=== PATIENT | male | born 1955 | race Caucasian/White ===

== ENCOUNTER 2023-10-04 09:54 | Observation (INO) | payer OTHER, SELFPAY ==
[2023-10-04] VITALS (27 sets, daily range): BP systolic 120–174; BP diastolic 40–65; PULSE 59–74; RESP 12–29; TEMP 36.4; O2SAT 94–98
--- NOTE | ~2023-10-04 | CT_ITS ---
EXAMINATION:CT diagnostic chest w con DATE: 10/05/2023 11:57 INDICATION: Exertional dyspnea. TECHNIQUE: Computed tomography (CT) of the chest was performed with 75 mL Omnipaque 350 intravenous c ontrast. Automated exposure control and iterative reconstruction technique were employed. The dose-le ngth product (DLP) was 302.93 mGy-cm. COMPARISON: None. FINDINGS: There are mild groundglass opacities in the upper lobes and lower lobes. No pleural effusio n. There is left ventricular enlargement of the heart. No pericardial effusion. There are coronary ar moses calcifications. There is mild aortic atherosclerosis. There is a 15 mm cyst in left kidney. Ther e is mild thoracic spondylosis. IMPRESSION: 1. Mild groundglass opacities in the upper lobes and lower lobes, consistent with atypical pneumonia versus mild pulmonary edema. Reviewed, dictated and finalized at location A. HAND IMPRESSION: 1. Mild groundglass opacities in the upper lobes and lower lobes, consistent wi th atypical pneumonia versus mild pulmonary edema.
--- NOTE | ~2023-10-04 | XR_ITS ---
EXAMINATION: XR chest 2V DATE: 10/04/2023 10:34 INDICATION: Dyspnea TECHNIQUE: frontal and lateral views of the chest were obtained. COMPARISON: None FINDINGS: The lungs are clear with no focal airspace opacities, pulmonary edema, pleural effusion or pneumothor ax. The cardiomediastinal silhouette is normal. Visualized bones and soft tissues are unremarkable. IMPRESSION: 1. No acute cardiopulmonary disease. Reviewed, dictated and finalized at location A. ENT SAFETY TECH
--- NOTE | 2023-10-04 10:12 | ECG_ITS ---
Measurements Intervals [place] Rate: 64 P: 66 DC: 183 QRS: 52 QRSD: 117 T: 119 QT: 410 QTc: 425 Interpretive Statements SINUS RHYTHM POSSIBLE LEFT ATRIAL ENLARGEMENT [-0.1mV P WAVE IN V1/V2] INCOMPLETE RIGHT BUNDLE BRANCH BLOCK INFERIOR MYOCARDIAL INFARCTION , PROBABLY OLD WITH POSTERIOR EXTENSION [40+ ms Q WAVE AND/OR ST/T ABNORMALITY IN II/aVFPROMINE NO PREVIOUS ECG AVAILABLE FOR COMPARISON Electronically Signed On 10-04-2023 15:05:36 DETAIL MANAGER by Gagan Marie M.D.
[2023-10-04 10:25] LABS: Basophils Percent Auto 0.3 % (0.2-1.2); Eosinophils Absolute Auto 0.2 K/mm3 (0-0.3); Eosinophils Percent Auto 2.3 % (0-4.4); Hematocrit 44.1 % (42.0-52.0); Hemoglobin 14.5 g/dL (14.0-18.0); Immature Granulocyte Absolute 0.04 K/mm3 (0.00-0.031); Immature Granulocyte Percent A 0.6 % (0-0.5); Lymphocytes Absolute Auto 1.56 K/mm3 (0.9-3.2); Lymphocytes Percent Auto 23.8 % (18.3-44.2); Mean Corpuscular HGB Conc 32.9 g/dl (32-36); Mean Corpuscular Hemoglobin 30.9 pg (26-34); Mean Platelet Volume 11.4 fl (7.4-10.4); Monocytes Absolute Auto 0.7 K/mm3 (0.1-0.6); Monocytes Percent Auto 10.4 % (2.6-8.5); Neutrophils Absolute Auto 4.1 K/mm3 (1.3-6.7); Neutrophils Percent Auto 62.6 % (45.5-73.1); Platelet Count Result 179 k/mm3 (150-375); Red Blood Count 4.69 M/mm3 (4.6-6.20); Red Cell Distribution Width 12.4 % (11.5-14.5); White Blood Count 6.6 K/mm3 (4.5-10.0)
[2023-10-04 10:38] LABS: Alanine Aminotransferase 35 U/L (6-50); Alkaline Phosphatase 83 U/L (38-126); Anion Gap 7 mmol/L (8-16); Aspartate Amino Transferase 37 U/L (17-59); Bilirubin,Total 0.5 mg/dL (0.2-1.3); Blood Urea Nitrogen 16 mg/dL (9-20); Calcium 9.1 mg/dL (8.4-10.2); Carbon Dioxide 25 mmol/L (22-30); Chloride 108 mmol/L (98-107); Estimated CRCL calculation 107 ml/min; Estimated Glomerular Filt Rate > 60; Glucose 104 mg/dL (65-110); Potassium 3.9 mmol/L (3.4-5.0); Sodium 140 mmol/L (137-145)
--- NOTE | 2023-10-04 11:15 | ED.SOB ---
HPI - SOB/Dyspnea General Chief Complaint: Shortness of Breath/Dyspnea Stated Complaint: sob Time Seen by Provider: 10/04/23 10:38 Source: patient Mode of arrival: ambulatory Limitations: no limitations History of Present Illness HPI Narrative: This is a 67 year old male that presents to the ER for dyspnea. Ongoing over the last 5 months. Reports exertional dyspnea. Reports he sometimes coughs up pink frothy sputum. Reports some chest tightness with this. He has been seen by his PCP and was prescribed an albuterol inhaler. He does not believe he has ever had a stress test. Denies lower extremity edema. Related Data Home Medications Medication Instructions Recorded Confirmed Adult One Daily Multivitamin 10/04/23 alendronate-vitamin D3 10/04/23 testosterone 100 mg implant pellet mg subcut 10/04/23 10/04/23 Allergies Allergy/AdvReac Type Severity Reaction Status Date / Time No Known Allergies Allergy Verified 10/04/23 10:43 Review of Systems Review of Systems: CONSTITUTIONAL: Denies fever CARDIOVASCULAR: Reports chest pain. Denies edema. RESPIRATORY: Reports cough and dyspnea. All systems reviewed & are unremarkable except as noted in HPI and below PMFSH Past Medical History Medical History (Updated 10/04/23 @ 12:58 by Minda More PA-C) History of hyperlipidemia History of hypertension Social History Social History (Updated 10/04/23 @ 11:20 by Minda More PA-C) Smoking status: Former smoker Exam Narrative: GENERAL: Well-appearing, well-nourished, and in no acute distress. HEAD: Normocephalic, atraumatic. EYES: EOMI. NECK: Supple. No adenopathy or masses. No JVD CHEST: Clear to auscultation. No respiratory distress. No wheezes rales or rhonchi HEART: Regular rate and rhythm. No murmur heard. Normal peripheral pulses. EXTREMITIES: Normal range of motion. No edema. SKIN: Warm, dry, no rash. NEURO: No focal deficits. Alert and oriented x3. PSYCH: Normal mood and affect Course Course Emergency Course: Patient updated on his workup and recommendation for admission Consultations Consultation #1: Spoke with hospitalist about patient and workup who accepts admission Date: 10/04/23 Vital Signs Vital signs: Vital Signs Temperature 97.6 F 10/04/23 10:09 Pulse Rate 70 10/04/23 10:09 Respiratory Rate 16 10/04/23 10:09 Blood Pressure 165/59 H 10/04/23 10:09 Pulse Oximetry 97 10/04/23 10:09 Temperature 97.6 F 10/04/23 10:09 Pulse Rate 69 10/04/23 10:42 Respiratory Rate 20 10/04/23 10:42 Blood Pressure 156/61 H 10/04/23 10:42 Pulse Oximetry 97 10/04/23 10:42 Oxygen Delivery Room Air 10/04/23 10:41 MDM - SOB/Dyspnea MDM Narrative Medical decision making narrative: Patient presents to the ER for exertional dyspnea ongoing for several months. He is afebrile and nontoxic appearing. His vitals are stable. CBC and metabolic panel without concerning findings. EKG shows Q-waves. His baseline troponin is negative. Reports no known history of coronary artery disease. He has never had a stress test or cardiac catheterization. Chest x-ray without acute cardiopulmonary abnormality. His BNP is elevated at 1510. No known history of heart failure. Patient's heart score is a 6. Patient updated on his workup and recommendation for admission. Spoke with hospitalist about patient and workup who accepts admission Differential Diagnosis Differential diagnosis: Likely congestive heart failure, community acquired pneumonia, pulmonary embolism and other (CAD, angina) Lab Data Attestation: I reviewed the patient's lab results. 10/04/23 10:20 10/04/23 10:20 Labs: Lab Results 10/04/23 10/04/23 Range/Units 10:20 11:06 WBC 6.6 (4.5-10.0) K/mm3 RBC 4.69 (4.6-6.20) M/mm3 Hgb 14.5 (14.0-18.0) g/dL Hct 44.1 (42.0-52.0) % MCV 94.0 (80-100) fl MCH 30.9 (26-34) pg MCHC 32.9 (32-36) g/dl RDW 12.4 (
[2023-10-04 11:36] LABS: INR 0.9; Prothrombin Time 12.9 Seconds (11.1-14.7)
[2023-10-04 11:37] LABS: Partial Thromboplastin Time 30.1 SECONDS (22.3-36.8)
[2023-10-04 11:41] LABS: NT Pro B Type Natriuretic Pept 1510 pg/mL (19.9-100); Troponin I 0.015 ng/mL (0.000-0.034)
[2023-10-04 11:42] LABS: D Dimer 0.32 ug/mL (<0.48)
[2023-10-04 11:50] LABS: Influenza A QL RT-PCR Negative (Negative); Influenza B QL RT-PCR Negative (Negative); RSV RNA, RT-PCR Negative (Negative); SARS-CoV-2 RNA PCR Negative (Negative)
--- NOTE | 2023-10-04 17:42 | ECG_ITS ---
Measurements Intervals [place] Rate: 62 P: 62 IA: 192 QRS: 37 QRSD: 108 T: 74 QT: 434 QTc: 444 Interpretive Statements SINUS RHYTHM POSSIBLE LEFT ATRIAL ENLARGEMENT [-0.1mV P WAVE IN V1/V2] INCOMPLETE RIGHT BUNDLE BRANCH BLOCK INFEROLATERAL MYOCARDIAL INFARCTION , PROBABLY OLD COMPARED TO ECG 10/04/2023 10:17:21 NO SIGNIFICANT CHANGES Electronically Signed On 10-05-2023 16:29:22 DISABILITY EXAMINER by Gagan Marie M.D.
--- NOTE | 2023-10-04 17:46 | PM.IMHP ---
H&P: HPI History of Present Illness Date/Time: 10/04/23 17:46 Chief Complaint: SOB, Chest Pain Narrative: 67 y/o M presents here with CP, exertional SOB, and intermittent cough with pink phlegm with PMH of HLD, HTN (off medications after weight reduction in 2017, has not been placed back on them), and murmur. Patient presents here with exertional SOB that has been ongoing since spring/summer of this year (2022). Patient reported that he has been very active and had been playing pickleball. During a game late summer, he was unable to finish playing due to SOB post-exertion and developed a productive cough which produced pink tinged sputum. Took approximately 20-30 mins of rest to alleviate SOB. Was then seen by his PCP and placed on Albuterol to use prior to exertion. Patient reported mild relief with use. Was referred to Pulmonology, has been unable to get an appointment. Has had prior PFT testing that showed mild lung disease . Patient has history of tobacco use - 1.5 ppd for 13 years. 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 No previous chemical exposures. No history of incarcerations, homelessness, travel to [place] countries, weight loss, or night sweats. Has had some cardiac workup at [facility] with Jennifer Rodríguez MD, echo in May of 2023 showed murmur per patient. However, patient became concerned when he developed chest tightness and a heaviness in his chest. Chest tightness continued to wake patient through the night every 40 mins and was accompanied by dizziness. Noted some alleviation with deep breathing, but symptoms would return. ED workup showed an unremarkable CBC and BMP, BNP elevated at 1510, CXR normal, troponin negative x2, and EKG showed sinus rhythm, possible left atrial large mint, incomplete RBBB, inferior ID (probably old with posterior extension), Q-wave, and ST/T abnormality. Review of Systems Review of Systems: All systems reviewed & are unremarkable except as noted in HPI and below PMFSH Past Medical History Medical History (Updated 10/04/23 @ 20:14 by Eva Heard APRN) HLD (hyperlipidemia) HTN (hypertension) Surgical History Surgical History History of umbilical hernia repair Social History Social History Smoking status: Former smoker Alcohol intake: current Alcohol use details: Daily, 3-5 beers Meds Home Medications and Allergies Home Medications Medication Instructions Recorded Confirmed Type Adult One Daily Multivitamin 10/04/23 History alendronate-vitamin D3 10/04/23 History testosterone 100 mg implant pellet mg subcut 10/04/23 10/04/23 History Allergies Allergy/AdvReac Type Severity Reaction Status Date / Time No Known Allergies Allergy Verified 10/04/23 10:43 Vital Signs Vital Signs - 24 hr 10/04/23 10:09 10/04/23 10:41 10/04/23 10:42 Temperature 97.6 F Pulse Rate 70 69 Respiratory Rate 16 20 Blood Pressure 165/59 H 156/61 H Pulse Oximetry 97 97 Oxygen Delivery Room Air Exam Const: General: comfortable and no acute distress HENMT: Face/Nose/Sinus: Normal nares present Mouth: Yes moist mucous membranes Eyes: General: appearance normal, both eyes and all related structures Sclera: sclerae normal Pupils: Equal, round and reactive pupils present EOM: EOMs intact bilaterally Resp: Effort & Inspection: normal respiratory effort Auscultation: clear to auscultation bilaterally Cardio: Rate: regular rate Rhythm: regular rhythm Other: +murmur GI: GI Palp: Yes Soft to palpation Auscultation: normal bowel sounds Skin: General skin exam: normal color and no rashes or lesions noted Wounds: no wounds Neuro: Speech: normal speech Motor exam (neuro): 5/5 motor strength present throughout Sensory Exam: normal sensation Other: A/Ox4 Extrem: General: normal to inspection Psych: Mental Stat
[2023-10-04 18:23] LABS: Troponin I 0.021 ng/mL (0.000-0.034)
--- NOTE | 2023-10-04 19:16 | PC.NURSE ---
This RN assumed care of patient. This RN took patient report from Belinda Gonzalez.
[2023-10-04] MEDS: ACETAMINOPHEN 500 MG TABLET PO (20:51)
[2023-10-05] VITALS (16 sets, daily range): BP systolic 128–155; BP diastolic 51–70; PULSE 54–83; RESP 16–20; TEMP 36.2–36.6; O2SAT 96–100; BMI 31.1
--- NOTE | 2023-10-05 | ECHO_ITS ---
Patient Info Name: Quinton Nieves Age: 67 years : 1955 Gender: Male Ht: 70 in Wt: 217 lbs BSA: 2.23 m2 HR: 54 bpm BP: 135 / 70 mmHg Heart Rhythm: Sinus Rhythm, Bradycardia Technical Quality: Fair Exam Date: 10/05/2023 9:08 AM Exam Location: Echo Lab Patient Status: Outpatient Admit Date: 10/04/2023 Staff Ordering Physician: Eva Heard APRN Fitness Technician: Audra De La Paz RDCS Attending Provider: Christina Velasco DO Referring Physician: Orquidea DANIELLE; Exam Type: CA echo dop color flow w con Study Info Indications - SOB W/EXERTION Complete two-dimensional, color flow and Doppler transthoracic echocardiogram is performed with contrast to opacify the left ventricle and to improve the deliniation of the left ventricle endocardial borders. Contrast/Agitated Saline Contrast/Ag. Saline: Definity Amount: 2.00 ml Administered By: uAdra De La Paz RDCS Existing IV Access: Yes IV Access Condition: patent with no signs of infiltration Summary 1. Left ventricular chamber dimension is normal. 2. There is moderately increased left ventricular wall thickness. 3. Left ventricular systolic function is normal, estimated at 55-60%. 4. The apex appears to be hypokinetic. 5. The left ventricular diastolic function is grade I diastolic dysfunction. 6. Right ventricular systolic function is normal. 7. There is moderate aortic valve calcification. 8. There is moderate aortic valve stenosis with a peak velocity of 310.53 cm/s, mean gradient of 21 mmHg, and aortic valve area of 1.10 cm2. Left Ventricle The apex appears to be hypokinetic. Left ventricular chamber dimension is normal. Left ventricular systolic function is normal, estimated at 55-60%. There is moderately increased left ventricular wall thickness. The left ventricular diastolic function is grade I diastolic dysfunction. Right Ventricle Right ventricular chamber dimension is normal. Right ventricular systolic function is normal. Left Atria Left atrial chamber dimension is normal. Right Atria Right atrial chamber dimension is normal. Atrial Septum Intact interatrial septum visualized by color flow imaging. Aortic Valve The aortic valve is not well visualized. There is moderate aortic valve stenosis with a peak velocity of 310.53 cm/s, mean gradient of 21 mmHg, and aortic valve area of 1.10 cm2. There is no aortic valve regurgitation. There is moderate aortic valve calcification. Pulmonic Valve The pulmonic valve is not well visualized. There is trace pulmonic regurgitation. Mitral Valve The mitral valve has thickened leaflets. There is trace mitral valve regurgitation. Tricuspid Valve There is trace tricuspid valve regurgitation. Pericardium/Pleural There is no pericardial effusion. Inferior Vena Cava Normal inferior vena cava with <50% collapse upon inspiration consistent with normal right atrial pressure, 8 mmHg. Aorta The aortic root size at the sinus of Valsalva is normal. Left Ventricular Outflow Tract Name Value Normal LVOT 2D LVOT Diameter 2.01 cm LVOT Doppler LVOT Peak Gradient 5 mmHg LVOT Mean Gradient 3 mmHg
--- NOTE | 2023-10-05 01:03 | PC.NURSE ---
THIS RN ATTEMPTED TO CALL REPORT TO IMU NURSE TO GET PT UPSTAIRS. IMU NURSE INFORMED THIS RN, THEY WERE UNABLE TO TAKE PT REPORT AT THIS TIME. ED ATTENDANCE SECRETARY MADE AWARE.
--- NOTE | 2023-10-05 01:26 | ADMGEN ---
This patient, Quinton Nieves, was admitted to IMU Room 211-01 @0120 Patient/family oriented to hospital policies and general routines including ID bracelet, bed and alarms, visiting hours, pain management, procedures, bathroom and other care routines, personal items, smoking policy, room service/diet, and visiting hours. Information on how to activate the Rapid Response Team has been discussed. Patient/Family are encouraged to report perceived risks to care and to ask questions if they do not understand what they are told or what they should do.
[2023-10-05] MEDS: ACETAMINOPHEN 500 MG TABLET PO ×3 (02:36→20:40)
[2023-10-05 05:28] LABS: Hematocrit 42.7 % (42.0-52.0); Hemoglobin 14.2 g/dL (14.0-18.0); Mean Corpuscular HGB Conc 33.3 g/dl (32-36); Mean Corpuscular Hemoglobin 31.4 pg (26-34); Mean Corpuscular Volume 94.5 fl (80-100); Mean Platelet Volume 11.7 fl (7.4-10.4); Platelet Count Result 167 k/mm3 (150-375); Red Blood Count 4.52 M/mm3 (4.6-6.20); Red Cell Distribution Width 12.2 % (11.5-14.5); White Blood Count 6.1 K/mm3 (4.5-10.0)
[2023-10-05 05:38] LABS: Anion Gap 7 mmol/L (8-16); Blood Urea Nitrogen 17 mg/dL (9-20); Calcium 8.7 mg/dL (8.4-10.2); Carbon Dioxide 25 mmol/L (22-30); Chloride 107 mmol/L (98-107); Estimated CRCL calculation 94 ml/min; Estimated Glomerular Filt Rate > 60; Glucose 93 mg/dL (65-110); Potassium 4.1 mmol/L (3.4-5.0); Sodium 139 mmol/L (137-145)
[2023-10-05] MEDS: MULTIVITAMINS THERAPEUTIC TAB (*BKC) 1 TABLET PO (08:59)
[2023-10-05] MEDS: ENOXAPARIN 40 MG/0.4 ML SYRINGE SUB-Q (09:00)
[2023-10-05] MEDS: ATORVASTATIN 20 MG TABLET PO (09:00)
[2023-10-05] MEDS: PERFLUTREN LIPID MICROSPHERES 1.5 ML VIAL DILUTED TO 10 ML TOTAL VOLUME IV PUSH (09:25)
--- NOTE | 2023-10-05 09:28 | PM.IMPN ---
Progress Note: A&P Assessment and Plan (1) Exertional dyspnea: Code(s): R06.09 - Other forms of dyspnea Status: Acute (2) Chest pain: Code(s): R07.9 - Chest pain, unspecified Status: Acute (3) HTN (hypertension): Code(s): I10 - Essential (primary) hypertension Status: Acute Plan 67-year-old female presented with chest pain exertion shortness of breath and intermittent cough with pink phlegm. Ongoing since spring. History of tobacco abuse 1.5 pack per day for 13 years. Echo in May of 2023 ED workup revealed unremarkable CBC and BMP BNP was elevated at 1510. Chest x-ray was normal. Troponin negative. EKG sinus rhythm possible left atrial enlargement, incomplete right bundle-branch block inferior WI Q-wave and ST T-wave abnormality. D-dimer 0.32. Cardiology consulted for further cardiac workup. History of hypertension not currently on medications since weight loss echo in the past from February 27 reviewed LVEF normal however had apical hypokinesis. Also has moderate however difficult to determine. CT chest ordered by Cardiology revealed mild ground-glass opacities in upper lobes and lower lobes consistent with atypical pneumonia versus mild pulmonary edema. Suspect worsening aortic stenosis etiology and congestive heart failure with all these findings. Echocardiogram has been reordered and will reviewed. May need stress test for further evaluation. Await cardiac recommendations. DVT prophylaxis Lovenox Subjective Date/time seen: 10/05/23 09:28 Interval history: 67-year-old female presented with chest pain exertion shortness of breath and intermittent cough with pink phlegm. Ongoing since spring. History of tobacco abuse 1.5 pack per day for 13 years. Echo in May of 2023 ED workup revealed unremarkable CBC and BMP BNP was elevated at 1510. Chest x-ray was normal. Troponin negative. EKG sinus rhythm possible left atrial enlargement, incomplete right bundle-branch block inferior WI Q-wave and ST T-wave abnormality. D-dimer 0.32. Cardiology consulted for further cardiac workup. History of hypertension not currently on medications since weight loss echo in the past from February 27 reviewed LVEF normal however had apical hypokinesis. Also has moderate however difficult to determine. CT chest ordered by Cardiology revealed mild ground-glass opacities in upper lobes and lower lobes consistent with atypical pneumonia versus mild pulmonary edema. Suspect worsening aortic stenosis etiology and congestive heart failure with all these findings. Echocardiogram has been reordered and will reviewed. May need stress test for further evaluation. Await cardiac recommendations. Review of Systems Review of Systems: All systems reviewed & are unremarkable except as noted in HPI and below Exam Narrative: GENERAL: Well-appearing, well-nourished, and in no acute distress. HEAD: Normocephalic, atraumatic. EYES: EOMI. NECK: Supple. No adenopathy or masses. No JVD CHEST: Clear to auscultation. No respiratory distress. No wheezes rales or rhonchi HEART: Regular rate and rhythm. No murmur heard. Normal peripheral pulses. EXTREMITIES: Normal range of motion. No edema. SKIN: Warm, dry, no rash. NEURO: No focal deficits. Alert and oriented x3. PSYCH: Normal mood and affect Objective Data Vital Signs Vital Signs: Vital Signs - 24 hr 10/04/23 10:09 10/04/23 10:41 10/04/23 10:42 Temperature 97.6 F Pulse Rate 70 69 Respiratory Rate 16 20 Blood Pressure 165/59 H 156/61 H Pulse Oximetry 97 97 Oxygen Delivery Room Air 10/04/23 10:47 10/04/23 11:01 10/04/23 11:17 Temperature Pulse Rate 62 64 64 Respiratory Rate 23 H 18 24 H Blood Pressure 147/60 H 174/65 H 156/54 H Pulse Oximetry 97 97 97 Oxygen Delivery 10/04/23 11:31 10/04/23 15:23 10/04/23 15:32 Temperature Pulse Rate 64 61 60 Respiratory Rate 25 H 20 17 Blood Pressure 151/60 H 141/65 H 123
--- NOTE | 2023-10-05 09:50 | PM.CNCAR ---
Assessment and Plan Assessment and plan (1) Exertional dyspnea: Code(s): R06.09 - Other forms of dyspnea Status: Acute Assessment and Plan: Has been experiencing exertional dyspnea for several years, worse over the past 6 months. He denies any orthopnea, peripheral edema, rapid weight gain. Chest x-ray does not show any pulmonary congestion. He did have a mildly elevated NT proBNP of 1510. Had an echocardiogram performed in February of this year that showed normal LV systolic function with an EF of 65%, moderate aortic stenosis, indeterminate diastolic function. Doubt his shortness of breath is primarily a cardiac problem Echo has been ordered and is pending Will check a chest CT Further workup per hospitalist (2) Chest pain: Code(s): R07.9 - Chest pain, unspecified Status: Acute Assessment and Plan: Atypical chest pain. Patient describes this as a pressure-like sensation in his upper abdomen. Feels like pressure or compression on diaphragm. Troponin levels are negative. EKG shows sinus rhythm with incomplete RBBB, cannot rule out inferior infarct of indeterminate age. Can consider outpatient stress testing (3) HTN (hypertension): Code(s): I10 - Essential (primary) hypertension Status: Acute Assessment and Plan: Blood pressure is above goal. We will await results of echocardiogram before selecting an antihypertensive agent History of Present Illness History of Present Illness Consult date/time: 10/05/23 09:50 Requesting physician: Eva Heard APRN Consult reason: congestive heart failure Reason For Visit: Exertional Dyspnea Narrative: Quinton Nieves is a 67-year-old male with hyperlipidemia and moderate aortic stenosis. He was hospitalized now with a chief complaint of exertional dyspnea. He reports exertional dyspnea that has been ongoing for several years but has worsened in the past 6 months. He became more concerned a couple of nights ago when he developed tightness that he describes as being in the area of his diaphragm that was associated with shortness of breath. He states that when he goes on ?power walks? and plays pickle ball he has to rest for about 20-30 minutes in order to catch his breath. He did go to his primary care doctor because of this complaint and was given an albuterol inhaler which he takes before activity and he thinks this has helped slightly. He also had pulmonary function studies done at and [facility] facility that he reports showed ?mild lung disease.? He has been referred to pulmonology but has not been seen yet. He also had a cardiac evaluation by Dr. Rodríguez at [facility] in February. He did have an echocardiogram that showed normal systolic function with moderate aortic stenosis. He denies any chest pain, palpitations, edema, rapid weight gain, orthopnea, or paroxysmal nocturnal dyspnea. Currently, he is lying comfortably in bed and does not have any complaints. His daughter is at the bedside. Review of Systems Review of Systems: All systems reviewed & are unremarkable except as noted in HPI and below PMFSH Past Medical History Medical History HLD (hyperlipidemia) HTN (hypertension) Surgical History Surgical History History of umbilical hernia repair Family History Family History Father Chronic obstructive pulmonary disease Congestive heart failure Social History Social History Smoking status: Former smoker Alcohol intake: former Alcohol use details: Daily, 3-5 beers Substance use: never Do You Feel Safe in your Home?: Yes Lack of Transportation: No Lack of Food: Never True Current Housing: I Have Housing Concerned About Future Housing: No Difficulty Paying Gas/Electric Bills:
[2023-10-05] MEDS: CYCLOBENZAPRINE HCL 5 MG TABLET PO (16:10)
[2023-10-05] MEDS: FUROSEMIDE INJ 40 MG/4 ML VIAL IV PUSH (18:19)
[2023-10-06] VITALS: PULSE 57
[2023-10-06 00:15] VITALS: BP 135/58; PULSE 54; RESP 16; TEMP 36.5; O2SAT 96
[2023-10-06 04:00] VITALS: PULSE 66
[2023-10-06] MEDS: ACETAMINOPHEN 500 MG TABLET PO (05:58)
[2023-10-06 06:41] LABS: Basophils Percent Auto 0.2 % (0.2-1.2); Eosinophils Absolute Auto 0.2 K/mm3 (0-0.3); Eosinophils Percent Auto 2.5 % (0-4.4); Hematocrit 45.9 % (42.0-52.0); Immature Granulocyte Absolute 0.01 K/mm3 (0.00-0.031); Immature Granulocyte Percent A 0.2 % (0-0.5); Lymphocytes Absolute Auto 1.16 K/mm3 (0.9-3.2); Mean Corpuscular HGB Conc 32.7 g/dl (32-36); Mean Corpuscular Hemoglobin 30.9 pg (26-34); Mean Corpuscular Volume 94.4 fl (80-100); Monocytes Absolute Auto 0.7 K/mm3 (0.1-0.6); Monocytes Percent Auto 11.6 % (2.6-8.5); Neutrophils Absolute Auto 4.1 K/mm3 (1.3-6.7); Neutrophils Percent Auto 66.5 % (45.5-73.1); Platelet Count Result 186 k/mm3 (150-375); Red Blood Count 4.86 M/mm3 (4.6-6.20); Red Cell Distribution Width 12.1 % (11.5-14.5); White Blood Count 6.1 K/mm3 (4.5-10.0)
[2023-10-06 06:51] LABS: Alanine Aminotransferase 37 U/L (6-50); Albumin Level 4.3 g/dL (3.5-5.1); Alkaline Phosphatase 78 U/L (38-126); Anion Gap 8 mmol/L (8-16); Aspartate Amino Transferase 31 U/L (17-59); Bilirubin,Total 0.9 mg/dL (0.2-1.3); Blood Urea Nitrogen 18 mg/dL (9-20); Calcium 9.1 mg/dL (8.4-10.2); Carbon Dioxide 27 mmol/L (22-30); Chloride 103 mmol/L (98-107); Estimated CRCL calculation 94 ml/min; Estimated Glomerular Filt Rate > 60; Glucose 96 mg/dL (65-110); Magnesium 2.3 mg/dL (1.6-2.3); Potassium 3.8 mmol/L (3.4-5.0); Sodium 138 mmol/L (137-145)
[2023-10-06 08:00] VITALS: BP 128/69; PULSE 58; PULSE 61; RESP 24; TEMP 36.2; O2SAT 95
[2023-10-06] MEDS: ATORVASTATIN 20 MG TABLET PO (09:21)
[2023-10-06] MEDS: ENOXAPARIN 40 MG/0.4 ML SYRINGE SUB-Q (09:21)
[2023-10-06] MEDS: MULTIVITAMINS THERAPEUTIC TAB (*BKC) 1 TABLET PO (09:21)
--- NOTE | 2023-10-06 10:30 | PM.PNCARD ---
Progress Note: A&P Assessment and Plan (1) Exertional dyspnea: Code(s): R06.09 - Other forms of dyspnea Status: Acute Assessment and Plan: Has been experiencing exertional dyspnea for several years, worse over the past 6 months.? ? He denies any orthopnea, peripheral edema, rapid weight gain. ? Chest x-ray does not show any pulmonary congestion.? He did have a mildly elevated NT proBNP of 1510. ? Had an echocardiogram performed in February of this year that showed normal LV systolic function with an EF of 65%, moderate aortic stenosis, indeterminate diastolic function. Echocardiogram 10/05 this admission shows moderately increased LV wall thickness, LVEF 550-60% with hypokinesis of the apex (was noticed on prior echocardiogram as well from February), grade 1 diastolic dysfunction, moderate . CT Chest was obtained yesterday which showed mild groundglass opacities in the upper lobes and lower lobes, consistent with atypical pneumonia or mild pulmonary edema. He was given dose of IV Lasix 40mg x 1 last night, and had good urine output with 2.95L of urine overnight. Patient states he is feeling well this morning and feels better after diuresing. Blood pressures are better this morning after diuresis as well. Recommend oral daily Lasix. Recommend outpatient sleep study as well. (2) Chest pain: Code(s): R07.9 - Chest pain, unspecified Status: Acute Assessment and Plan: Atypical chest pain.? Patient describes this as a pressure-like sensation in his upper abdomen.? Feels like pressure or compression on diaphragm.? Troponin levels are negative. EKG shows sinus rhythm with incomplete RBBB, cannot rule out inferior infarct of indeterminate age. Reasonable to obtain outpatient stress testing or coronary CTA. Patient to follow up with his primary Short Piece Handler regarding this. (3) HTN (hypertension): Code(s): I10 - Essential (primary) hypertension Status: Acute Assessment and Plan: Improved with Lasix. Plan Stable for discharge from my standpoint. Recommendations and plan discussed with Hospitalist. Patient to follow up with his primary excellence specialist, Dr. Santiago. Subjective Date/time seen: 10/06/23 10:30 Interval history: Reason for visit: Exertional dyspnea HPI: Quinton Nieves is a 67-year-old male with hyperlipidemia and moderate aortic stenosis.? He was hospitalized now with a chief complaint of exertional dyspnea.? He reports exertional dyspnea that has been ongoing for several years but has worsened in the past 6 months.? He became more concerned a couple of nights ago when he developed tightness that he describes as being in the area of his diaphragm that was associated with shortness of breath.? He states that when he goes on ?power walks? and plays pickle ball he has to rest for about 20-30 minutes in order to catch his breath.? He did go to his primary care doctor because of this complaint and was given an albuterol inhaler which he takes before activity and he thinks this has helped slightly.? He also had pulmonary function studies done at and [facility] facility that he reports showed ?mild lung disease.?? He has been referred to pulmonology but has not been seen yet.? He also had a cardiac evaluation by Dr. Rodríguez at [facility] in February.? He did have an echocardiogram that showed normal systolic function with moderate aortic stenosis.? He denies any chest pain, palpitations, edema, rapid weight gain, orthopnea, or paroxysmal nocturnal dyspnea.? Currently, he is lying comfortably in bed and does not have any complaints.? His daughter is at the bedside. Date of service 10/06: CT Chest was obtained yesterday which showed mild groundglass opacities in the upper lobes and lower lobes, consistent with atypical pneumonia or mild pulmonary edema. He was given dose of IV Lasix 40mg x 1 last night, and had good urine output with 2.95L of urine overnight. Patient states he is feeling well this morning and feels better afte
--- NOTE | 2023-10-06 12:01 | PM.DS ---
DS: Admitting Diagnosis Discharge Date 10/06/2023 Admitting Diagnosis Shortness of breath DS: Discharge Diagnosis Discharge Diagnosis (1) Exertional dyspnea: Code(s): R06.09 - Other forms of dyspnea Status: Acute (2) Chest pain: Code(s): R07.9 - Chest pain, unspecified Status: Acute (3) HTN (hypertension): Code(s): I10 - Essential (primary) hypertension Status: Acute DS: Summary Hospital Course Hospital Course: 67-year-old male presented with chest pain exertion shortness of breath and intermittent cough with pink phlegm.? Ongoing since spring and gradually worsening. No leg swelling.? History of tobacco abuse 1.5 pack per day for 13 years.? Echo in May of 2023 reviewed. ED workup revealed unremarkable CBC and BMP BNP was elevated at 1510.? Chest x-ray was normal.? Troponin negative.? EKG sinus rhythm possible left atrial enlargement, incomplete right bundle-branch block inferior MT Q-wave and ST T-wave abnormality.? D-dimer 0.32.? Which is negative. cardiology consulted for further cardiac workup.? History of hypertension not currently on medications since weight loss however has been creeping up. Echo in the past from February 27 reviewed LVEF normal however had apical hypokinesis.? Also has moderate however difficult to determine. Plan was to repeat in a year to further evaluate. CT chest revealed mild ground-glass opacities in upper lobes and lower lobes consistent with atypical pneumonia versus mild pulmonary edema.? Suspect worsening aortic stenosis etiology and congestive heart failure with all these findings. Repeat echo 10/05/2023 showed moderately increased LV wall thickness, LVEF 50-60% with hypokinesis of the apex grade 1 diastolic dysfunction and moderate . Given a dose of Lasix with findings of pulmonary congestion in CT chest with marked improvement in his symptoms. He also had apnea link test which showed AHI of 94.5 strongly suggestive of underlying sleep apnea. He will need sleep study as an outpatient basis. For apical hypokinesis he might need further evaluation for underlying coronary artery disease with outpatient stress test or coronary CTA. Your follow-up with his primary green end department supervisor regarding this. He will be sent home on oral Lasix along with potassium supplement. Time Spent with Patient Time attestation: Total time spent providing and/or coordinating discharge services: 35 minutes Exam Narrative: GENERAL: Well-appearing, well-nourished, and in no acute distress. HEAD: Normocephalic, atraumatic. EYES: EOMI. NECK: Supple. No adenopathy or masses. No JVD CHEST: Clear to auscultation. No respiratory distress. No wheezes rales or rhonchi HEART: Regular rate and rhythm. No murmur heard. Normal peripheral pulses. EXTREMITIES: Normal range of motion. No edema. SKIN: Warm, dry, no rash. NEURO: No focal deficits. Alert and oriented x3. PSYCH: Normal mood and affect DS: Data Data Completed and Pending Completed studies during hospitalization: Exam Type: ? ? CA echo dop color flow w con Study Info Indications ?? ? - SOB W/EXERTION Complete two-dimensional, color flow and Doppler transthoracic echocardiogram is performed with contrast to opacify the left ventricle and to improve the deliniation of the left ventricle endocardial borders. Account #: ? ? [id number] Contrast/Agitated Saline Contrast/Ag. Saline: ? ? Definity Amount: ? ? 2.00 ml Administered By: ? ? Brain,? Audra [facility] Existing IV Access: ? ? Yes IV Access Condition: ? ? patent with no signs of infiltration Summary ? 1. Left ventricular chamber dimension is normal. ? 2. There is moderately increased left ventricular wall thickness. ? 3. Left ventricular systolic function is normal, estimated at 55-60%. ? 4. The apex appears to be hypokinetic. ? 5. The left ventricular diastolic function is grade I diastolic dysfunction. ? 6. Right ventricular
--- NOTE | 2023-10-16 12:49 | IVDEFINITY ---
Prior to administration of IV Definity the patient was educated on the risks and benefits of the imaging enhancing agent including potential adverse side effects. The patient verbalized understanding. Allergies were verified. No exclusion criteria were identified and at least one of the following inclusion criteria were met: 1) physician request, 2) patient technically difficult to image (per the [place] [employer] guidelines of two or more segments not discernable within the apical view), or 3) questionable left ventricular function. ?
== END 2023-10-06 12:37 | disposition home or self-care (01) ==
LOC: ANHED 12:57 → ANHIMU 15:42
PROVIDERS: Emergency Medicine; Student in an Organized Health Care Education/Training Program; Admitting Provider Student in an Organized Health Care Education/Training Program; Emergency Provider Physician Assistant; Visit Provider Internal Medicine
DX: R06.09 Other forms of dyspnea (principal); R07.9 Chest pain, unspecified; I11.0 Hypertensive heart disease with heart failure; I50.9 Heart failure, unspecified; R05.9 Cough, unspecified; E78.5 Hyperlipidemia, unspecified; I45.10 Unspecified right bundle-branch block; R94.31 Abnormal electrocardiogram [ECG] [EKG]; I35.0 Nonrheumatic aortic (valve) stenosis; Z20.822 Contact with and (suspected) exposure to COVID-19; R01.1 Cardiac murmur, unspecified; R79.89 Other specified abnormal findings of blood chemistry; Z87.891 Personal history of nicotine dependence; Z79.51 Long term (current) use of inhaled steroids; Z79.890 Hormone replacement therapy; Z79.899 Other long term (current) drug therapy
CPT/HCPCS: 36415; 71046; 71260; 80048; 80053; 83735; 83880; 84443; 84484; 85025; 85027; 85380; 85610; 85730; 87637; 93005; 96372; 96374; 99285; A9270; C8929; G0378; J1650; J1940; Q9957; Q9967

== ENCOUNTER 2023-12-20 13:37 | Emergency (ER) | payer OTHER, SELFPAY ==
--- NOTE | 2023-12-20 13:41 | ED.URI ---
HPI - URI/Sore Throat General Chief Complaint: Upper Respiratory Infection Stated Complaint: Sore Throat Time Seen by Provider: 12/20/23 13:39 Source: patient Mode of arrival: ambulatory Limitations: no limitations History of Present Illness HPI Narrative: Patient is a 68-year-old male who presents with sore throat that started yesterday. Patient slept with windows open the night before. Patient has been taking DayQuil and NyQuil. Denies any congestion, cough, ear pain, fever, chills, nausea, vomiting, diarrhea. Related Data Home Medications Medication Instructions Recorded Confirmed Adult One Daily Multivitamin 500 mg BYMOUTH DAILY 10/04/23 12/20/23 alendronate-vitamin D3 500 mg BYMOUTH DAILY 10/04/23 12/20/23 testosterone 100 mg implant pellet 100 mg subcut DAILY 10/04/23 12/20/23 atorvastatin 20 mg tablet 20 mg PO DAILY 10/05/23 12/20/23 Allergies Allergy/AdvReac Type Severity Reaction Status Date / Time No Known Allergies Allergy Verified 12/20/23 13:47 Review of Systems Review of Systems: All systems reviewed & are unremarkable except as noted in HPI and below Constitutional: Constitutional: Denies body ache(s), Denies chills, Denies fatigue, Denies fever(s), Denies headache(s), Denies malaise and Denies weakness Eyes: Eyes: Denies blurry vision, Denies itchy eyes and Denies loss of vision ENT: Denies otalgia, Denies headache(s), Denies nasal congestion, Denies sinus pain and Reports sore throat Cardiovascular: Cardiovascular: Denies chest pain, Denies irregular heart rhythm and Denies dyspnea Respiratory: Respiratory: Denies cough and Denies dyspnea Gastrointestinal: Gastrointestinal: Denies abdominal pain, Denies diarrhea, Denies nausea and Denies vomiting Musculoskeletal: Musculoskeletal: Denies back pain, Denies myalgias and Denies arthralgias Integumentary/Breasts: Skin/Breast: Denies pruritus and Denies rash Neurologic: Denies headache(s), Denies loss of vision and Denies weakness Psychiatric: Psychiatric: Reports no additional psychiatric complaints Endocrine: Endocrine: Denies fatigue Allergic/Immunologic: Allergic/Immunologic: Denies itchy eyes PMFSH Past Medical History Medical History HLD (hyperlipidemia) HTN (hypertension) Surgical History Surgical History History of umbilical hernia repair Family History Family History Father Chronic obstructive pulmonary disease Congestive heart failure Social History Social History Smoking status: Former smoker Alcohol intake: former Alcohol use details: Daily, 3-5 beers Substance use: never Do You Feel Safe in your Home?: Yes Lack of Transportation: No Lack of Food: Never True Current Housing: I Have Housing Concerned About Future Housing: No Difficulty Paying Gas/Electric Bills: No Difficulty Paying for Meds: No Currently Unemployed: No Education: Bachelor's Degree Difficulty w/ Childcare or Family Care: No Spiritual care concerns: No Comments At time of signature, agree with nursing past medical, surgical, social and family history. There is no relevant family history pertinent to the presenting complaint. Exam Const: General: cooperative, healthy appearing, comfortable, no acute distress and well nourished Nutritional Appearance: well nourished Orientation/consciousness: patient oriented x3 Limitations: no limitations HENMT: Head: normal to inspection, normocephalic and atraumatic Ears: hearing grossly normal bilaterally, external ears normal, TM's normal bilaterally, EAC's normal and no periauricular adenopathy Face/Nose/Sinus: Normal external nose present, Normal nasal mucous membranes and turbinates present, normal facial exam, sinuses nontender and face symmetric Face and
[2023-12-20 13:58] VITALS: BP 141/65; PULSE 82; RESP 16; TEMP 36.6; O2SAT 99
== END 2023-12-20 14:24 | disposition home or self-care (01) ==
PROVIDERS: Emergency Provider Nurse Practitioner Family
DX: J06.9 Acute upper respiratory infection, unspecified (principal); Z20.822 Contact with and (suspected) exposure to COVID-19; Z87.891 Personal history of nicotine dependence; E78.5 Hyperlipidemia, unspecified; I10 Essential (primary) hypertension
CPT/HCPCS: 87081; 87426; 87804; 87880; 99213; G0463

== ENCOUNTER 2024-06-02 09:59 | Outpatient (CLI) | payer OTHER, SELFPAY ==
--- NOTE | ~2024-06-02 | XR_ITS ---
Clinical Indication: Prior open heart surgery PA and lateral views of the chest: Comparison: 09/26/2023 Findings: The lungs are clear, without evidence of focal consolidation or pleural effusion. Cardiome diastinal silhouette is within normal limits, status post aortic valve replacement. Bones and soft ti ssues are unremarkable. Impression: Clear lungs. Status post interval aortic valve replacement. Reviewed, dictated and finalized at location . Impression: Clear lungs. Status post interval aortic valve replacement.
== END 2024-06-02 10:00 ==
DX: I25.10 Atherosclerotic heart disease of native coronary artery without angina pectoris (principal); Z95.1 Presence of aortocoronary bypass graft; Z95.2 Presence of prosthetic heart valve
CPT/HCPCS: 71046

== ENCOUNTER 2024-11-13 16:15 | Outpatient (RCR) | payer OTHER, SELFPAY | END 2024-11-17 07:29 | disposition home or self-care (01) | LOC: ANHCPREHAB 16:15 | DX: Z95.1 Presence of aortocoronary bypass graft (principal) | CPT/HCPCS: 93798 ==

== ENCOUNTER 2024-11-22 12:51 | Emergency (ER) | payer OTHER, SELFPAY ==
--- NOTE | 2024-11-22 12:56 | ED_ITS ---
HPI - Male Genitourinary General Chief complaint: Urogenital-Male Stated complaint: Sore Penis Time Seen by Provider: 11/22/24 13:13 Source: patient and RN notes reviewed Mode of arrival: ambulatory Limitations: no limitations History of Present Illness HPI Narrative: 69-year-old male presents with concern for lesion on the shaft of his penis. Reports it has been there for about 6 days. Reports he has had similar lesions in the past the last 1 was 4 months ago that have went away on their own. Reports he has been using hydrocortisone and Neosporin. Reports the lesion is uncomfortable, and he can since it coming on before is appears. He denies any penile discharge, dysuria, swollen, red, tender testicles. He denies concern for STDs MD Complaint: other (lesion) Related Data Home Medications ?Medication ?Instructions ?Recorded ?Confirmed ?Last Taken ?Type Adult One Daily Multivitamin 500 mg BYMOUTH DAILY 10/04/23 12/20/23 Unknown History alendronate-vitamin D3 500 mg BYMOUTH DAILY 10/04/23 12/20/23 Unknown History testosterone 100 mg implant pellet 100 mg subcut DAILY 10/04/23 12/20/23 Unknown History aspirin 81 mg tablet,delayed mg 11/22/24 Unknown History release atorvastatin 80 mg tablet mg 11/22/24 Unknown History bumetanide 2 mg tablet mg 11/22/24 Unknown History carvedilol 12.5 mg tablet mg 11/22/24 Unknown History carvedilol 6.25 mg tablet mg 11/22/24 Unknown History empagliflozin 10 mg tablet mg 11/22/24 Unknown History (Jardiance) spironolactone 25 mg tablet mg 11/22/24 Unknown History Allergies Allergy/AdvReac Type Severity Reaction Status Date / Time No Known Allergies Allergy Verified 11/22/24 12:58 Review of Systems Review of Systems: CONSTITUTIONAL: Denies malaise, chills, sweats, or fever. CARDIOVASCULAR: Denies chest pain, palpitations, or edema. RESPIRATORY: Denies cough or dyspnea. GASTROINTESTINAL: Denies abdominal pain, nausea, vomiting, diarrhea GENITOURINARY: Denies dysuria, frequency, urgency, suprapubic pressure. Denies flank pain or hematuria. SKIN: Reports painful lesion to the shaft of his penis MUSCULOSKELETAL: Denies back pain or myalgia. All systems reviewed & are unremarkable except as noted in HPI and below PMFSH Past Medical History Medical History HLD (hyperlipidemia) HTN (hypertension) Surgical History Surgical History History of umbilical hernia repair Family History Family History (Updated 07/25/24 @ 15:34 by Doris Kohli RN) Father Congestive heart failure Chronic obstructive pulmonary disease Sibling Malignant neoplasm of prostate Mother Alzheimer dementia Parkinson disease Social History Social History Smoking packs per day: 2 Smoking cigarettes per day: 40.0 Years smoked: 13 Smoking pack-years: 26.00 Smoking status: Former smoker Tobacco type: cigarettes Alcohol intake: former Alcohol use details: Daily, 3-5 beers Substance use: never Do You Feel Safe in your Home?: Yes Lack of Transportation: No Lack of Food: Never True Current Housing: I Have Housing Concerned About Future Housing: No Difficulty Paying Gas/Electric Bills: No Difficulty Paying for Meds: No Currently Unemployed: No Education: Bachelor's Degree Difficulty w/ Childcare or Family Care: No Spiritual care concerns: No Comments At time of signature, agree with nursing past medical, surgical, social and family history. There is no relevant family history pertinent to the presenting complaint Exam Narrative: GENERAL: Well-appearing, well-nourished, and in no acute distress. HEAD: Normocephalic. EYES: PERRLA, conjunctivae clear. NECK: Supple. No lymphadenopathy CHEST: Clear to auscultation. No respiratory distress. HEART: Regular rate and rhythm. SKIN: Warm, dry. Small open sore with beefy red tissue bed noted to the shaft of the penis. NEURO: Alert and oriented x3. PSYCH: Normal mood and affect Course Course Emergency Course: Patient is aware of diagnosis, understands and agrees to treatment plan. Anticipatory guidance given. Patient agrees to follow-up as directed and is aware of reasons to seek care at the emergency department. Portions of this record may have been created with voice recognition software Level of Care: Express Care Visit Vital Signs Vital signs: Reviewed. Critical Care Time Critical Care Time Critical Care Time: No Discharge Plan Discharge Clinical Impression: Lesion of penis Patient Disposition: Home, Self-Care Condition: Stable Instructions: Genital Herpes Infection (ED) Additional Instructions: 1) Please follow-up with your primary care doctor as needed. 2) If you have any urgent concerns please go to the ER. 3) Please take medications as prescribed and continue taking your home medications as usual. 4) You will receive a phone call with the results of today's testing when it comes back from the lab. Please read and follow information included in discharge instructions. Patient Language: Congolese Prescriptions: New valacyclovir 1 gram tablet 500 mg PO BID 3 Days Qty: 3 0RF No Action atorvastatin 80 mg tablet carvedilol 6.25 mg tablet carvedilol 12.5 mg tablet bumetanide 2 mg tablet aspirin 81 mg tablet,delayed release (DR/EC) spironolactone 25 mg tablet Jardiance 10 mg tablet Adult One Daily Multivitamin 500 mg BYMOUTH DAILY testosterone 100 mg Pellet 100 mg SUBCUT DAILY alendronate-vitamin D3 500 mg BYMOUTH DAILY furosemide 40 mg Tablet 40 mg PO DAILY Qty: 30 0RF potassium chloride 10 mEq capsule, extended release 10 meq PO DAILY Qty: 30 0RF Follow-up/Referrals: PHYSICIAN,CUPOLA TENDER HELPER [Primary Care Provider] - Time of Disposition: 13:22
[2024-11-22 13:00] VITALS: BP 142/67; PULSE 67; RESP 16; TEMP 36.3; O2SAT 98
== END 2024-11-22 13:23 | disposition home or self-care (01) ==
PROVIDERS: Emergency Provider Nurse Practitioner
DX: N48.89 Other specified disorders of penis (principal); Z79.899 Other long term (current) drug therapy; I10 Essential (primary) hypertension; Z87.891 Personal history of nicotine dependence
CPT/HCPCS: 87140; 87255; 99213; G0463